=== PATIENT | male | born 1965 | race African-American/Black ===

== ENCOUNTER 2016-11-27 19:26 | Emergency (ER) | payer MEDICARE ==
[~2016-11-27 19:26] MED LIST: ACETAMINOPHEN PO; AMLODIPINE BESYL5 MG PO; AMOXICILLI250 MG/5 M PO; BP PILL; COLACE PO; FAMOTIDINE PO; FOLIC ACID PO; HCTZ PO; HYDROCHLOROTHIA25 MG PO; HYDROCODON-ACE1 EAC7 PO; K-DUR20 ME1 PO; LISINOPRIL PO; LISINOPRIL10 MG PO; LOPRESSOR PO; LORTAB 10/500 T1 TAB PO; LORTAB 7.5-5001 TAB PO; MEDROL PO; MORPHINE SULFAT15 M3 PO; MULTIVITAMIN W/1 TAB PO; NICOTINE TRANSD21 MG EXT; NORVASC PO; NORVASC10 MG PO; PATIENT'S PHARMACY; PEPCID PO; PERIDEX480 ML PO; PHENERGAN25 M1 PO; PHENERGAN25 MG PO; ROXICET 5/325 SO5 ML PO; THIAMINE HCL100 MG PO; VICODIN 5/500 T1 TAB PO; ZESTRIL10 MG PO
[2016-11-27 19:45] LABS: BASOPHIL% 0.4 % (0-2.5); DIFF IND NO; EOSINOPHIL# 0.1 X10e3 (0-0.7); EOSINOPHIL% 0.7 % (0.0-7.0); HEMATOCRIT 39.9 % (38.0-50.0); HEMOGLOBIN 13.1 gm/dL (13.0-16.0); LYMPHOCYTE# 1.8 X10e3 (1.0-3.5); LYMPHOCYTE% 14.6 % (17.0-45.0); MEAN CELL VOLUME 105.2 FL (83-96); MEAN CORPUSCULAR HEMOGLOBIN 34.6 PG (28-34); MEAN CORPUSCULAR HGB CONC 32.9 g/dL (30-36); MEAN PLATELET VOLUME 7.7 FL (6.5-11.5); MONOCYTE# 0.8 X10e3 (0-1.0); MONOCYTE% 6.2 % (3.0-12.0); NEUTROPHIL# 9.7 X10e3 (1.5-7.1); NEUTROPHIL% 78.1 % (40-75); PLATELET COUNT 275 X10e3 (140-420); RED BLOOD COUNT 3.79 X10e (3.90-5.60); RED CELL DISTRIBUTION WIDTH 14.4 % (11.0-15.5); WHITE BLOOD COUNT 12.4 X10e3 (4.0-10.5)
[2016-11-27 20:03] LABS: ALBUMIN SERUM 2.8 g/dL (3.5-5.0); ALCOHOL BLOOD <5 mg/dL (0); ALKALINE PHOSPHATASE 94 U/L (32-92); ALT (SGPT) 13 U/L (10-40); AMYLASE 5 U/L (0-46); AST (SGOT) 22 U/L (10-42); BILIRUBIN, DIRECT 0.3 mg/dL (0.0-0.2); BILIRUBIN,INDIRECT 1.2 mg/dL (0.0-0.9); BILIRUBIN,TOTAL 1.5 mg/dL (0.2-2.0); BLOOD UREA NITROGEN 10 mg/dL (9-23); BUN/CREATININE RATIO 9.09; CALCIUM SERUM 8.6 mg/dL (8.4-10.2); CARBON DIOXIDE 29 mmol/L (22-31); CHLORIDE 98 mmol/L (100-111); CREATININE SERUM 1.1 mg/dL (0.6-1.4); GLUCOSE FASTING 100 mg/dL (70-110); LIPASE 12 U/L (22-51); POTASSIUM 2.9 mmol/L (3.5-5.1); PROTEIN TOTAL SERUM 6.1 g/dL (6.0-8.3); SODIUM 136 mmol/L (135-145)
[2016-11-27 20:55] LABS: URINE SOURCE CLEAN CATCH
[2016-11-27 21:01] LABS: URINE APPEARANCE CLOUDY; URINE BILIRUBIN NEG (NEG); URINE BLOOD NEG (NEG); URINE COLOR DK YELLOW; URINE GLUCOSE NEG (NEG); URINE KETONE TRACE (NEG); URINE LEUKOCYTE ESTERASE NEG (NEG); URINE NITRATE NEG (NEG); URINE PROTEIN 2+ (NEG); URINE SPECIFIC GRAVITY 1.028 (1.003-1.035)
[2016-11-27 21:04] LABS: CULTURE INDICATED? YES; URINE BACTERIA AUWI NEG (NEGATIVE); URINE SQUAMOUS EPITHELIAL CELL FEW /[HPF]
[2016-11-27 21:10] LABS: AMPHETAMINE NEG (NEG); BARBITURATES NEG (NEG); BENZODIAZEPINES NEG (NEG); COCAINE NEG (NEG); MARIJUANA POS (NEG); OPIATES POS (NEG); TRICYCLIC ANTIDEPRESSANTS NEG (NEG); U METHADONE NEG (NEG)
== END 2016-11-27 21:55 | disposition home or self-care (01) ==
LOC: CED 19:26
PROVIDERS: Student in an Organized Health Care Education/Training Program
DX: K29.20 Alcoholic gastritis without bleeding (principal); K86.1 Other chronic pancreatitis; F11.10 Opioid abuse, uncomplicated; F12.10 Cannabis abuse, uncomplicated; E87.6 Hypokalemia; F17.200 Nicotine dependence, unspecified, uncomplicated; I10 Essential (primary) hypertension; F10.10 Alcohol abuse, uncomplicated
CPT/HCPCS: 36415; 80048; 80076; 80307; 81003; 82150; 83690; 85025; 87086; 96361; 96374; 96375; 99284; G0480; J2270; J2405; J3411; J3475